=== PATIENT | female | born 1965 | race Caucasian/White ===

== ENCOUNTER → 2022-04-17 | Outpatient (CLI) | payer OTHER ==
[~2022-04-17] MED LIST: ASPIR-LOW81 MG PO; ATORVASTATIN CA20 MG PO; BRILINTA 90 MG90 MG PO; CARBATROL300 MG PO; CETIRIZINE HCL10 MG PO; HYDROCODON-ACE1 EAC6 PO; IBU800 MG PO; KEPPRA750 MG PO; LIPITOR80 MG PO; LISINOPRIL5 MG PO; LOPRESSOR 25 MG25 MG PO; LOW DOSE ASPIRI81 MG PO; LYRICA200 MG PO; OMEPRAZOLE40 MG PO; PRINIVIL5 MG PO; TOPROL XL25 MG PO; ZOFRAN 4 MG TAB4 MG PO
[2022-04-17 12:18] LABS: BUN/CREATININE RATIO 15 (0-10)
== END ==
LOC: OPSV2 10:00
PROVIDERS: Orthopaedic Surgery
DX: Z01.818 Encounter for other preprocedural examination (principal); S52.502A Unspecified fracture of the lower end of left radius, initial encounter for closed fracture
CPT/HCPCS: 36415; 80048; 93005

== ENCOUNTER → 2022-04-18 | Day surgery (SDC) | payer OTHER ==
[~2022-04-18] VITALS: Ht 165.1 cm; Wt 90.3 kg
== END | disposition home or self-care (01) ==
LOC: OR 06:53
DX: S52.572A Other intraarticular fracture of lower end of left radius, initial encounter for closed fracture (principal); S52.612A Displaced fracture of left ulna styloid process, initial encounter for closed fracture; I10 Essential (primary) hypertension; W19.XXXA Unspecified fall, initial encounter; Y92.096 Garden or yard of other non-institutional residence as the place of occurrence of the external cause; Z88.5 Allergy status to narcotic agent
CPT/HCPCS: 73110; 76000; C1713; J0171; J0690; J1100; J1885; J2001; J2250; J2405; J2704; J2795; J3010